=== PATIENT | female | born 1970 | race Caucasian/White ===

== ENCOUNTER → 2024-05-20 | Outpatient (CLI) | payer BC, SELFPAY ==
--- NOTE | 2024-05-20 14:00 | XR_ITS ---
Examination: Screening digital mammography, bilateral Computer aided detection 3-D breast Tomosynthesis, bilateral Date and time of exam: 05/20/2024, 1:50 PM Comparisons: March 2012 through June 2016 Indications: Screening Technique: Nonmagnified MLO, CC views of the breasts to been obtained, reconstructed from 3-D Tomosynthesis images. R2 computer aided detection program utilized for evaluation of suspicious masses and/or abnormal calcifications. 3-D Tomosynthesis images obtained. Technologist: Findings: There are scattered areas of fibroglandular density. Subpectoral saline implants appear intact. No evidence of abnormal masses or suspicious calcifications. Impression: BI-RADS category 2: Benign findings Recommend 1 year follow-up mammogram
== END | disposition home or self-care (01) ==
PROVIDERS: PCP Nurse Practitioner; Referring Provider Nurse Practitioner; Visit Provider Nurse Practitioner
DX: Z12.31 Encounter for screening mammogram for malignant neoplasm of breast (principal); R92.323 Mammographic fibroglandular density, bilateral breasts
CPT/HCPCS: 77063; 77067

== ENCOUNTER → 2024-07-28 | Outpatient (CLI) | payer BC, SELFPAY ==
[2024-07-28 12:57] LABS: Collection Type, Urine Clean Catch; WBC,Urine 0 /hpf (0-5)
[2024-07-28 13:26] LABS: Bilirubin,Urine Negative (Negative); Blood,Urine 1+ (Negative); Clarity,Urine Clear (Clear/Hazy); Color,Urine Lt-Yellow (Lt Yel-Yel); Glucose, Urine Negative (Negative); Ketones,Urine Negative (Negative); Leukocyte Esterase,Urine Negative (Negative); Nitrite,Urine Negative (Negative); PH,Urine 5.5 (5.0-7.0); Protein,Urine Negative (Neg - Trace); RBC,Urine 8 /hpf (0-3); Specific Gravity,Urine 1.023 (1.001-1.035); Squamous Epithelial Cell,Urine 2 /hpf (0-5); Urobilinogen,Urine Negative mg/dL (0.0-1.0)
== END | disposition home or self-care (01) ==
LOC: SLDO 12:47
PROVIDERS: PCP Orthopaedic Surgery; Referring Provider Orthopaedic Surgery; Visit Provider Orthopaedic Surgery
DX: N39.0 Urinary tract infection, site not specified (principal)
CPT/HCPCS: 81001

== ENCOUNTER 2024-07-29 09:15 | Day surgery (SDC) | payer BC, SELFPAY ==
[2024-07-28 13:42] VITALS: BMI 28.8
[2024-07-29] VITALS (10 sets, daily range): BP systolic 117–146; BP diastolic 76–114; PULSE 71–86; RESP 13–36; TEMP 36.3–36.7; O2SAT 93–99; BMI 30.7
[2024-07-29] MEDS: BENZOCAINE 20% (Hurricaine) SPRAY 1 DOSE TOP (11:29)
[2024-07-29] MEDS: SODIUM CHLORIDE 0.9% 500 ML 500 ML 20 ML IV (11:29)
[2024-07-29] MEDS: DiphenhydrAMINE INJ 50 MG/ML VIAL 25 MG IV (11:30)
[2024-07-29] MEDS: fentaNYL CIT INJ 50 mCg/ML AMP 2ML (ASD USE ONLY) IV (11:30)
[2024-07-29] MEDS: MIDAZOLAM INJ 1 MG/ML VIAL 2 ML (ASD USE ONLY) 2 MG IV (11:32)
--- NOTE | 2024-07-29 12:25 | SUR.PHASEII ---
Patient awake and alert, oriented x3, denies pain nausea and vomiting. Abdomen noted to be soft, non-tender, non-distended, bowel sounds present and active x4. Patient able to drink fluids with a regular consistency without choking, coughing, or dripping from mouth.
--- NOTE | 2024-07-29 12:30 | SUR.PHASEII ---
Patient left accompanied by family at this time in stable conditions, no acute distress noted, no SOB, denies pain at this time. Patient left on wheelchair escorted by RN to private vehicle without complications.
== END 2024-07-29 12:30 | disposition home or self-care (01) ==
PROVIDERS: PCP Internal Medicine; Referring Provider Specialist; Visit Provider Specialist
PROC: (CPT 43239; principal; 2024-07-29 11:45)
DX: K22.2 Esophageal obstruction (principal); K20.90 Esophagitis, unspecified without bleeding; K29.70 Gastritis, unspecified, without bleeding
CPT/HCPCS: 43248; 43239; 81025; A4649; C1769; J1200; J2250; J3010; J7040; A9270

== ENCOUNTER 2024-08-04 09:39 | Emergency (ER) | payer OTHER, SELFPAY ==
[2024-08-04 09:40] VITALS: BMI 30.4
[2024-08-04 09:58] VITALS: BP 136/87; PULSE 92; RESP 18; TEMP 37.1; O2SAT 95
--- NOTE | 2024-08-04 10:04 | PD.EDRME ---
Rapid Medical Screening Exam RME Arrival date/time: 08/04/24 09:39 53-year-old female with a history of cervical spine surgery and lumbar spine surgery presents to the emergency room with a chief complaint of a headache, difficulty urinating, back tenderness x 2 days I have greeted and performed a focused initial assessment of this patient. A comprehensive ED assessment and evaluation of the patient, analysis of all test results, and completion of the medical decision making process will be conducted by additional ED providers. Chief Complaint: Headache Time Seen by Provider: 08/04/24 09:48 Vital signs: Vital Signs Temperature 98.8 F 08/04/24 09:58 Pulse Rate 92 08/04/24 09:58 Respiratory Rate 18 08/04/24 09:58 Blood Pressure 136/87 H 08/04/24 09:58 Pulse Oximetry (%) 95 08/04/24 09:58 Oxygen Delivery Method Room Air 08/04/24 09:58 Vital signs reviewed by provider: Yes
[2024-08-04] MEDS: ACETAMINOPHEN 325 MG TABLET 650 MG PO (10:10)
[2024-08-04 10:28] LABS: Collection Type, Urine Clean Catch
[2024-08-04 10:40] LABS: Amphetamine/Methamp Scrn,U Negative (Negative); Barbiturate Screen,Urine Negative (Negative); Benzodiazepines Screen,Urine Negative (Negative); Benzoylecgonine Screen, Ur Negative (Negative); Fentanyl Screen,Urine Negative (Negative); Opiate Screen,Urine Negative (Negative); THC Screen,Urine Negative (Negative)
[2024-08-04 10:51] LABS: Basophils # (Auto) 0.1 Thou/mm3 (0.0-0.2); Basophils % (Auto) 1 % (0-2.5); Eosinophils # (Auto) 0.1 Thou/mm3 (0.0-0.5); Eosinophils % (Auto) 1 % (0-10); Hematocrit 41.6 % (36.0-46.0); Hemoglobin 14.1 g/dL (12.0-16.0); Immature Granulocytes % (Auto) 0 % (0-0); Immature Granulocytes Auto 0.02 Thou/mm3 (0.00-0.00); Lymphocytes # (Auto) 2.9 Thou/mm3 (1.0-4.8); Lymphocytes % (Auto) 39 % (10-50); Mean Corpuscular HGB Conc 33.9 g/dl (31.0-37.0); Mean Corpuscular Hemoglobin 30.9 pg (25.0-35.0); Mean Corpuscular Volume 91 fL (80-100); Monocytes # (Auto) 0.6 Thou/mm3 (0.0-0.8); Monocytes % (Auto) 9 % (0-12); Neutrophils # (Auto) 3.8 Thou/mm3 (1.8-7.7); Neutrophils % (Auto) 51 % (37-80); Nucleated Red Blood Cell % 0 /100 WBC (0); Platelet Count 393 Thou/mm3 (140-440); RDW Standard Deviation 43.2 fL (36.4-46.3); Red Blood Count 4.56 Miln/mm3 (4.00-5.20); White Blood Count 7.5 Thou/mm3 (3.6-11.0)
[2024-08-04 11:11] LABS: Alanine Aminotransferase 77 U/L (10-49); Albumin, Serum 4.8 gm/dL (3.5-5.0); Albumin/Globulin Ratio 1.5 (1.2-2.2); Alkaline Phosphatase 104 U/L (46-116); Anion Gap 10 (7-16); Aspartate Amino Transferase 36 U/L (0-34); BUN/Creatinine Ratio 12 Ratio (12-20); Bilirubin,Total 0.5 mg/dL (0.3-1.2); Blood Urea Nitrogen 11 mg/dL (9-23); Calcium 9.4 mg/dL (8.3-10.6); Calcium (Corrected) 9.4 mg/dL (8.5-10.1); Carbon Dioxide 26.1 mMol/L (20.0-31.0); Chloride 104 mMol/L (98-107); Creatinine (Component) 0.9 mg/dL (0.6-1.3); Estimated Creatinine Clearance 87.1 mL/min (>60); Globulin 3.1 gm/dL (2.3-3.5); Glucose 89 mg/dL (74-106); Lipase 42 U/L (12-53); Osmolality,Calculated 277 (275-295); Potassium 4.3 mMol/L (3.4-5.1); Sodium 140 mMol/L (136-145); Total Protein 7.9 gm/dL (5.7-8.2); eGFR > 60 See Note
[2024-08-04 11:24] LABS: INR 0.9 (0.9-1.3); Partial Thromboplastin Time 28.4 Seconds (22.0-36.0); Prothrombin Time 10.4 Seconds (9.0-12.2)
[2024-08-04 11:56] LABS: Bacteria,Urine Rare; Bilirubin,Urine Negative (Negative); Blood,Urine Negative (Negative); Clarity,Urine Clear (Clear/Hazy); Color,Urine Lt-Yellow (Lt Yel-Yel); Culture Indicated,Urine Not Indicated; Glucose, Urine Negative (Negative); Ketones,Urine Negative (Negative); Leukocyte Esterase,Urine Negative (Negative); Nitrite,Urine Negative (Negative); PH,Urine 6.5 (5.0-7.0); Protein,Urine Negative (Neg - Trace); RBC,Urine 4 /hpf (0-3); Specific Gravity,Urine 1.019 (1.001-1.035); Squamous Epithelial Cell,Urine 3 /hpf (0-5); Urobilinogen,Urine Negative mg/dL (0.0-1.0); WBC,Urine 1 /hpf (0-5)
--- NOTE | 2024-08-04 14:04 | PD.EDHA ---
ED Headache RME/HPI General Chief Complaint: Headache Stated Complaint: HEADACHE, CONFUSION, UNABLE TO URINATE COUPLE HOUR Time Seen by Provider: 08/04/24 09:48 Arrival date/time: 08/04/24 09:39 RME / HPI RME / HPI Narrative: 53-year-old female with a history of cervical spine surgery and lumbar spine surgery presents to the emergency room with a chief complaint of a headache, difficulty urinating, back tenderness x 2 days Related Data Home Medications ?Medication ?Instructions ?Recorded ?Confirmed montelukast 10 mg tablet 10 mg PO DAILY 09/14/20 07/29/24 docusate sodium 100 mg capsule 100 mg PO TID 07/29/24 07/29/24 estradiol 1 mg tablet 1 mg PO DAILY 07/29/24 07/29/24 fluticasone propionate 50 2 spray intranasal QDAY PRN 07/29/24 07/29/24 mcg/actuation nasal allergy symptoms spray,suspension (Flonase Allergy Relief) Allergies Allergy/AdvReac Type Severity Reaction Status Date / Time No Known Allergies Allergy Verified 08/04/24 09:43 Course Orders Category Date Time Status CBC Stat Lab 08/04/24 10:17 Completed CMP [Comprehensive Metabolic Panel] Stat Lab 08/04/24 10:17 Completed Drug Screen,Urine Stat Lab 08/04/24 10:15 Completed Lipase Stat Lab 08/04/24 10:17 Completed PT [Prothrombin Time with INR] Stat Lab 08/04/24 10:17 Completed PTT [Partial Thromboplastin Time] Stat Lab 08/04/24 10:17 Completed UA, C/S IF [Urinalysis, C/S if Indicated] Stat Lab 08/04/24 10:15 Completed Acetaminophen Tab [Tylenol Tab] Med 08/04/24 10:04 Discontinued 650 mg PO X1 ONE Vital Signs Vital signs: Vital Signs Temperature 98.8 F 08/04/24 09:58 Pulse Rate 92 08/04/24 09:58 Respiratory Rate 18 08/04/24 09:58 Blood Pressure 136/87 H 08/04/24 09:58 Pulse Oximetry (%) 95 08/04/24 09:58 Oxygen Delivery Method Room Air 08/04/24 09:58 Headache Medications / Prescriptions Medication administrations:: Medication Administration History Discontinued Medications Acetaminophen (Acetaminophen 325 Mg Tablet) 650 mg PO X1 ONE Stop: 08/04/24 10:05 Last Admin: 08/04/24 10:10 Dose: 650 mg Documented By: Discharge Plan Plan Patient Disposition: HOME (Self Care) Prescriptions/Referrals Prescriptions/Med Rec: No Action montelukast 10 mg tablet 10 mg PO DAILY Patient Comments: TAKE 1 TABLET BY MOUTH EVERY DAY estradiol 1 mg tablet 1 mg PO DAILY Patient Comments: TAKE 1 TABLET BY MOUTH EVERY DAY FOR 90 DAYS docusate sodium 100 mg capsule 100 mg PO TID Patient Comments: TAKE 1 CAPSULE BY MOUTH THREE TIMES A DAY fluticasone propionate [Flonase Allergy Relief] 50 mcg/actuation spray,suspension 2 spray intranasal QDAY PRN (Reason: allergy symptoms) Rx Instructions: administer into each nostril Referrals: Jan Umaña MD [Primary Care Provider] - In 1 week Patient/Caregiver Discharge Instructions Print Language: Swedish Stand Alone Forms: [employer] Award Info., Work/School Release, Patient Portal Info Letter
[2024-08-04 14:15] VITALS: BP 132/91; PULSE 78; RESP 18; TEMP 36.7; O2SAT 96
--- NOTE | 2024-08-04 15:03 | PD.EDADULT ---
ED General RME/HPI General Chief complaint: Headache Stated complaint: HEADACHE, CONFUSION, UNABLE TO URINATE COUPLE HOUR Time Seen by Provider: 08/04/24 09:48 Arrival date/time: 08/04/24 09:39 RME / HPI RME / HPI narrative: 53-year-old female with a history of cervical spine surgery and lumbar spine surgery presents to the emergency room with a chief complaint of a headache, difficulty urinating, back tenderness x [address] WILCOX MAIN ED EVALUATION 53 year old female with history of chronic back pain, s/p cervical spine surgery (12/2023) and lumbar spine surgery (11/2023), presents to the ED with complaints of difficulty emptying her bladder today. She reports a history of intermittent urinary retention and decreased genital sensation even prior to her surgeries, but notes that both symptoms have worsened since the procedures. Currently, she experiences decreased genital sensation and more frequent episodes of incomplete bladder emptying. However, she was able to void while in the ED waiting room. Patient also reports dizziness today, which she notes her orthopedic surgeon, Dr. Evans, previously advised her to seek ED evaluation for if it occurred. No other new symptoms or complaints are reported at this time. Additionally, the patient recently underwent nerve conduction studies of both upper and lower extremities due to persistent sensory deficits and weakness following cervical spine surgery. She describes bilateral numbness in all fingers, as well as numbness in all toes, more pronounced in the fourth and fifth digits, and on the plantar surface of her feet. States she has sensation in her heels. Related Data Home Medications ?Medication ?Instructions ?Recorded ?Confirmed montelukast 10 mg tablet 10 mg PO DAILY 09/14/20 07/29/24 docusate sodium 100 mg capsule 100 mg PO TID 07/29/24 07/29/24 estradiol 1 mg tablet 1 mg PO DAILY 07/29/24 07/29/24 fluticasone propionate 50 2 spray intranasal QDAY PRN 07/29/24 07/29/24 mcg/actuation nasal allergy symptoms spray,suspension (Flonase Allergy Relief) Allergies Allergy/AdvReac Type Severity Reaction Status Date / Time No Known Allergies Allergy Verified 08/04/24 09:43 Review of Systems Review of Systems Narrative Review of Systems: GEN: No fever, no chills, no weight loss EYES: No discharge, no visual changes, no pain HEENT: No ear pain, no congestion, no sore throat PULM: No shortness of breath, no cough, no congestion CV: No chest pain, no palpitations GI: No nausea, no vomiting, no diarrhea, no pain, no constipation : +difficulty emptying bladder. No frequency, no urgency, no dysuria MUSC/SKEL: No joint pain, no back pain SKIN: No rash NEURO: +decreased strength BLE, +numbness to hands and feet, no headache Past Medical History Past Medical History NEUROLOGIC: Positive Neurological Disorders and Migraine GASTROINTESTINAL: Positive Gastrointestinal Disorders (dysphagia), Gastrointestinal Bleed, Diverticulosis, Hemorrhoids and Obesity GENITOURINARY: Positive Genitourinary Disorders and Kidney Stones REPRODUCTIVE: Positive Previous Pregnancies MUSCULOSKELETAL: Positive Musculoskeletal Disorders and Arthritis PSYCHO/SOCIAL: Positive Depression, Anxiety and Attention Deficit Disorder OTHER HISTORY: Positive Chicken Pox (x2) Surgical History SURGICAL: Positive Hysterectomy and Tubal Ligation Social History SMOKING STATUS: Never smoker ED Exam Narrative Physical exam: GENERAL APPEARANCE: alert and oriented x 4, well-developed, well-nourished, appears anxious HEENT: Normocephalic, atraumatic; pupils equal, round, reactive to light; EOMI; mucous membranes pink, moist; oropharynx clear NECK: Supple LUNGS: CTABL; no wheezes, no rales, no rhonchi HEART: Regular rate, regular rhythm; normal S1, S2; no murmurs ABDOMEN: non distended; normal BS; soft, no tenderness, no guarding, no rebound; no masses, no organomegaly, no hernia BACK: no CVA tenderness EXTREMITIES: atraumatic; no edema NEUROLOGIC: awake; alert and oriented x4; cranial nerves II-XII grossly intact; decreased manager of procurement strength right upper extremity, other upper extremity 5/5, mild hyperreflexia right lower extremity, no clonus, positive leg raise on the right, no ataxia PSYCHIATRIC: appears anxious SKIN: warm, dry, normal color; no rashes Course Quality Measures none Orders Category Date Time Status CBC Stat Lab 08/04/24 10:17 Completed CMP [Comprehensive Metabolic Panel] Stat Lab 08/04/24 10:17 Completed Drug Screen,Urine Stat Lab 08/04/24 10:15 Completed Lipase Stat Lab 08/04/24 10:17 Completed PT [Prothrombin Time with INR] Stat Lab 08/04/24 10:17 Completed PTT [Partial Thromboplastin Time] Stat Lab 08/04/24 10:17 Completed UA, C/S IF [Urinalysis, C/S if Indicated] Stat Lab 08/04/24 10:15 Completed Acetaminophen Tab [Tylenol Tab] Med 08/04/24 10:04 Discontinued 650 mg PO X1 ONE Ketorolac Inj [Toradol Inj] Med 08/04/24 14:54 Discontinued 30 mg IM X1 ONE Vital Signs Vital signs: Vital Signs Temperature 98.8 F 08/04/24 09:58 Pulse Rate 92 08/04/24 09:58 Respiratory Rate 18 08/04/24 09:58 Blood Pressure 136/87 H 08/04/24 09:58 Pulse Oximetry (%) 95 08/04/24 09:58 Oxygen Delivery Method Room Air 08/04/24 09:58 Pulse ox is 95% on room air which is adequate. Discharge Plan Plan Patient Disposition: HOME (Self Care) Prescriptions/Referrals Prescriptions/Med Rec: No Action montelukast 10 mg tablet 10 mg PO DAILY Patient Comments: TAKE 1 TABLET BY MOUTH EVERY DAY estradiol 1 mg tablet 1 mg PO DAILY Patient Comments: TAKE 1 TABLET BY MOUTH EVERY DAY FOR 90 DAYS docusate sodium 100 mg capsule 100 mg PO TID Patient Comments: TAKE 1 CAPSULE BY MOUTH THREE TIMES A DAY fluticasone propionate [Flonase Allergy Relief] 50 mcg/actuation spray,suspension 2 spray intranasal QDAY PRN (Reason: allergy symptoms) Rx Instructions: administer into each nostril Referrals: Jan Umaña MD [Primary Care Provider] - In 1 week Problem List Clinical Impression: Paresthesia Patient/Caregiver Discharge Instructions Education Materials: ED Paraesthesias Print Language: Kinyarwanda Stand Alone Forms: [employer] Award Info., Work/School Release, Patient Portal Info Letter MDM Narrative MDM hospital course (for use when minimal MDM required): iSs Kraus am scribing for and in the presence of Dr. Wilcox. Clinical Information Provided by: patient Medical Records reviewed [facility] Medical Records additional comments: I reviewed ED visi ton 04/14/2023 for hip pain Meds/Rx considered, not ordered None Labs/Rad/Tests considered, not ordered None Chronic Illness/Social Conditions which may negatively complicate care or outcome(s)-explain: None or not applicable EKG EKG not done Labs Labs: Interpreted by me Lab(s) Interpretation(s): CBC, CMP, PT/PTT all within normal limits UA no signs of infection UDS negative Imaging Imaging interpretation: none or see narrative above Medication Administration(s) Medication Administration History Discontinued Medications Acetaminophen (Acetaminophen 325 Mg Tablet) 650 mg PO X1 ONE Stop: 08/04/24 10:05 Last Admin: 08/04/24 10:10 Dose: 650 mg Documented By: GENE Ketorolac Tromethamine (Ketorolac Inj 30 Mg/Ml Vial) 30 mg IM X1 ONE Stop: 08/04/24 14:55 See above Diagnosis Diagnoses ruled out and/or further discussions: Paresthesia
[2024-08-04] MEDS: KETOROLAC INJ 30 MG/ML VIAL IM (15:27)
== END 2024-08-04 15:41 | disposition home or self-care (01) ==
PROVIDERS: Nurse Practitioner Family; Emergency Provider Emergency Medicine; PCP Orthopaedic Surgery Adult Reconstructive Orthopaedic Surgery
DX: R20.2 Paresthesia of skin (principal); R51.9 Headache, unspecified; R42 Dizziness and giddiness
CPT/HCPCS: 36415; 80053; 80307; 81001; 83690; 85025; 85610; 85730; 96372; 99283; J1885; A9270